=== PATIENT | male | born 1960 | race Caucasian/White ===

== ENCOUNTER 2025-03-08 13:02 | Outpatient (CLI) | payer OTHER, SELFPAY ==
--- NOTE | ~2025-03-08 | PE_ITS ---
EXAMINATION: PET skull to mid thigh DATE: 03/09/2025 08:55 INDICATION: Prostate cancer TECHNIQUE: 5.819 mCi of Illucix Ga-68([id number]) was administered i.v. Low dose computed tomography (CT) images were acquired from the base of the brain to the base of the brain to the proximal thighs for attenuation correction and anatomic localization. Positron emission tomography (PET) images were acquired in the same distribution beginning 71 minutes after injection. Images including fused PET/CT images were reconstructed in axial, coronal, and sagittal planes. Automated exposure control technique was employed. The dose-length product was 1366.87mGy-cm. COMPARISON: None FINDINGS: Head/neck: Typical pattern of symmetric physiologic increased activity in the lacrimal, parotid and submandibular glands as well as along the mucosa of the nasal and oral cavities, pharynx and hypopharynx. No pathologically enlarged cervical lymphadenopathy or suspicious foci of increased uptake in the visualized head or neck. Chest: Mild bibasilar atelectasis. No pulmonary nodules or pleural effusion. Heart size is normal. No pericardial effusion. Thoracic aorta is normal in caliber. No pathologically enlarged or PSMA avid thoracic lymphadenopathy. Abdomen/pelvis/proximal thighs: Physiologic renal accumulation and excretion of activity in the kidneys, bladder and along portions of ureters. There is a small focus of increased PSA may activity with maximal SUV of 13.6 at the right side of the normal sized prostate consistent with reported primary prostate cancer. Normal degree and slightly heterogenous pattern of increased uptake throughout the liver and spleen without radiologic correlate or dominant PSMA avid lesion. The gallbladder, pancreas and bilateral adrenal glands are normal. Moderate uptake scattered throughout the bowels with typical duodenal and proximal jejunal predominance and without radiologic correlate, also likely physiologic. Normal appendix. Mild descending and sigmoid colon diverticulosis without adjacent from trace stranding to suggest diverticulitis. Small left and very small right fat-containing inguinal hernias. No other abnormal foci of increased uptake or pathologically enlarged lymphadenopathy in the abdomen, pelvis or proximal thighs. Musculoskeletal: Moderate spondylosis in the cervical, thoracic and lumbar spine. No suspicious lytic, blastic or abnormally PSMA avid bone lesions. IMPRESSION: 1. Small focus of increased uptake at the right side of the normal sized prostate consistent with likely superimposed primary prostate cancer. No evident metastatic disease in the neck, chest, abdomen or pelvis. Reviewed, dictated and finalized at location A. CTOR OF FRONT OFFICE IMPRESSION: 1. Small focus of increased uptake at the right side of the normal sized prosta te consistent with likely superimposed primary prostate cancer. No evident meta static disease in the neck, chest, abdomen or pelvis.
--- OUTSIDE RECORDS SUMMARY | 2025-03-08 15:28 | XMS_ITS | Encounter Summary ---
Author Organization [facility] Address [facility] [place] [address] Care Team Providers Care Electronic Semiconductor Processor Name Role Phone Dylan Peter MD Unavailable [phone] Perico Valverde MD Primary Care Provider + Encounter Details Date Type Department Care Team (Late st Contact Info) Description 01/18/2025 Prep for Procedure [facility] [address] [place] [address] Bryant Wu MD [facility] [address] [place] [address] Social History Tobacco Use Types Packs/Day Years Used Date Smoking Tobacco: Never Smokeless Tobacco: Never Alcohol Use Standard Drinks/Week Comments No 0 (1 standard drink = 0.6 oz pur e alcohol) PHQ-2 Answer Date Recorded Patient Health Questionnaire-2 Score 0 05/09/2024 Sex and Gender Information Value Date Recorded Sex Assigned at Male 05/09/2024 9:07 AM CORN SHREDDER Legal Sex Male 5:52 PM CDT Gender Identity Not on file Sexual Orientation Not on file 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 Not on file Not on file Not on file documented as of this encounter Plan of Treatment Upcoming Encounters Date Type Department Care Team (Late st Contact Info) Description 06/19/2025 7:40 AM CDT Office Visit [facility] [address] [place] [address] Perico Valverde MD [id number] [phone] documented as of this encounter Results * URINE BACTERIA CULTURE (01/18/2025 11:44 AM CDT) SPEC DESCRIPTION URINE CLEAN CATCH 01/18/2025 11:44 AM CDT [facility] SPECIAL REQUESTS NO SPECIAL REQUEST 01/18/2025 11:44 AM CDT [facility] CULTURE RESULT NO GROWTH 2 DAYS 01/21/2025 7:17 AM CDT [facility] URINE SPECIMEN OBTAINED BY CLEAN CATCH PROCEDURE / Unknown 01/18/2025 11:44 AM CDT 01/18/2025 5:47 PM CDT Bryant Wu MD MICROBIOLOGY - GENERAL OR DERABLES Final Result Performing Organization Address City/State/[facility] Co de Phone Number [facility] [address] [place] [address], [place] [phone] [facility] [address] [place] [address], [place] [phone] * URINALYSIS (01/18/2025 11:44 AM CDT) COLOR (U) YELLOW 01/18/2025 12:34 PM CDT [facility] TRANSPARENCY CLEAR 01/18/2025 12:34 PM CDT [facility] SPECIFIC GRAVITY (U) 1.015 1.002 - 1.030 01/18/2025 12:34 PM CDT [facility] U PH 6.0 4.5 - 8.0 01/18/2025 12:34 PM CDT [facility] LEUKOCYTES (U) NEGATIVE NEGATIVE 01/18/2025 12:34 PM CDT [facility] NITRITES NEGATIVE NEGATIVE 01/18/2025 12:34 PM CDT [facility] PROTEIN RANDOM (U) NEGATIVE NEGATIVE 01/18/2025 12:34 PM T [facility] GLUCOSE (U) NEGATIVE NEGATIVE 01/18/2025 12:34 PM T [facility] KETONES MG/DL (U) NEGATIVE NEGATIVE 01/18/2025 12:34 PM T [facility] UROBILINOGEN NORMAL NORMAL EU/DL 01/18/2025 12:34 PM T [facility] BILIRUBIN (U) NEGATIVE NEGATIVE 01/18/2025 12:34 PM T [facility] BLOOD (U) NEGATIVE NEGATIVE 01/18/2025 12:34 PM T [facility] WBC/HPF MICROSCOPIC ANALYSIS NOT DONE ON URINES WITH NEGATIVE BIOCHEMICAL TESTS /HPF 01/18/2025 12:34 PM T [facility] URINE SPECIMEN OBTAINED BY CLEAN CATCH PROCEDURE / Unknown 01/18/2025 11:44 AM CDT Bryant Wu MD URINE ORDERABLES Final Re sult [facility] [address] [place] [address], [place] [phone] * PROTIME/INR, VENOUS (01/18/2025 11:44 AM CDT) PROTIME 12.2 9.4 - 12.5 SEC 01/18/2025 12:31 PM CDT [facility] INR 1.0 0.9 - 1.1 01/18/2025 12:31 PM T [facility] Comment: Recommended INR Therapeutic Goals: 2.0-3.0 Routine Therapy 2.5-3.5 Mechanical Prosthetic Valves (High Risk) 01/18/2025 11:4 4 AM CDT Bryant Wu MD LABORATORY Final Res ult Performing Organization Address City/[facility]/ZIP Co de Phone Number [facility] [address] [place] [address], [place] [phone] * PARTIAL THROMBOPLASTIN TIME,PTT (01/18/2025 11:44 AM CDT) PTT 32.6 25.1 - 36.5 SEC 01/18/2025 12:31 PM CDT [facility] 01/18/2025 11:4 4 AM CDT us Bryant Wu MD LABORATORY Final Res ult Performing Organization Address City/[facility]/ZIP Co de Phone Number [facility] [address] [place] [address], [place] [phone] * (ABNORMAL) BASIC METABOLIC PANEL (01/18/2025 11:44 AM CDT) GLUCOSE 121(H) 70 - 99 MG/DL 01/18/2025 12:39 PM CDT [facility] BUN 21(H) 7 - 18 MG/DL 01/18/2025 12:39 PM CDT [facility] CREATININE S/P/B 1.20 0.7 - 1.3 MG/DL 01/18/2025 12:39 PM CDT [facility] SODIUM S/P/B 142 136 - 145 MMOL/L 01/18/2025 12:39 PM CDT [facility] POTASSIUM S/P/B 3.8 3.5 - 5.1 MMOL/L 01/18/2025 12:39 PM CDT [facility] CHLORIDE S/P/B 105 100 - 108 MMOL/L 01/18/2025 12:39 PM CDT [facility] CO2 26.2 21 - 32 MMOL/L 01/18/2025 12:39 PM CDT [facility] CALCIUM S/P/B 9.2 8.5 - 10.1 MG/DL 01/18/2025 12:39 PM CDT [facility] ANION GAP 10.8 5 - 15 MMOL/L 01/18/2025 12:39 PM CDT [facility] BUN CREATININE RATIO 17.5 6 - 26 01/18/2025 12:39 PM CDT [facility] GFR ESTIMATE 68(L) >90 ML/MIN/1.7 3 M2 01/18/2025 12:39 PM CDT [facility] Comment: NOTE: eGFR is not calculated for patients <18 years of age. This is an estimated GFR calculation using the new CKD EPI creatinine equation without race and so does not require a correction factor for race. This estimated GFR should not be used for calculating drug doses. 01/18/2025 11:4 4 AM CDT us Bryant Wu MD LABORATORY Final Res ult [facility] [address] [place] [address], [place] [phone] * (ABNORMAL) CBC W/DIFF AUTOMATED (01/18/2025 11:44 AM CDT) WBC 6.88 4.50 - 11.00 x10'3/uL 01/18/2025 12:11 PM CDT [facility] RBC 4.80 4.70 - 6.10 x10'6/uL 01/18/2025 12:11 PM CDT [facility] HGB 14.9 14.0 - 18.0 G/DL 01/18/2025 12:11 PM CDT [facility] HCT 42.9(L) 43.0 - 54.0 % 01/18/2025 12:11 PM CDT [facility] MCV 89.4 80.0 - 94.0 FL 01/18/2025 12:11 PM CDT [facility] MCH 31.0 27.0 - 31.0 PG 01/18/2025 12:11 PM CDT [facility] MCHC 34.7 32.0 - 36.0 G/DL 01/18/2025 12:11 PM CDT [facility] RDW 12.1 11.5 - 14.5 % 01/18/2025 12:11 PM CDT [facility] PLT 210 130 - 400 x10'3/uL 01/18/2025 12:11 PM CDT [facility] MPV 10.3 9.3 - 12.2 FL 01/18/2025 12:11 PM CDT [facility] CBC COMMENT AUTOMATED RBC MORPHOLOGY AND PLATELET EVALUATION NORMAL 01/18/2025 12:11 PM CDT [facility] NEUTROPHILS % 59.4 % 01/18/2025 12:11 PM CDT [facility] LYMPHOCYTES % 27.8 % 01/18/2025 12:11 PM CDT [facility] MONOCYTES % 11.0 % 01/18/2025 12:11 PM CDT [facility] EOSINOPHILS 1.2 % 01/18/2025 12:11 PM CDT [facility] BASOPHILS 0.3 % 01/18/2025 12:11 PM CDT [facility] IMMATURE GRANS % 0.3 % 01/19/20 12:11 PM CDT [facility] NRBC % 0.0 % 01/18/2025 12:11 PM CDT [facility] ABS. NEUTROPHILS TOTAL 4.09 1.80 - 7.70 x10'3/uL 01/18/2025 12:11 PM CDT [facility] ABS. LYMPHOCYTES 1.91 1.00 - 4.80 x10'3/uL 01/18/2025 12:11 PM CDT [facility] ABS. MONOCYTES 0.76 0.30 - 0.82 x10'3/uL 01/18/2025 12:11 PM CDT [facility] ABS. EOSINOPHILS 0.08 0.04 - 0.54 x10'3/uL 01/18/2025 12:11 PM CDT [facility] ABS. BASOPHILS 0.02 0.01 - 0.08 x10'3/uL 01/18/2025 12:11 PM CDT [facility] ABS. IMMATURE GRANULOCYTES 0.02 0.00 - 0.49 x10'3/uL 01/18/2025 12:11 PM CDT [facility] ABS. NUCLEATED RBC'S 0.00 0.00 - 0.01 x10'3/uL 01/18/2025 12:11 PM CDT [facility] 01/18/2025 11:4 4 AM CDT Bryant Wu MD LABORATORY Final Res ult [facility] [address] [place] [address], documented in this encounter Visit Diagnoses Diagnosis Elevated PSA- Primary Elevated prostate specific antigen (PSA) documented in this encounter Care Teams Electronic Semiconductor Processor Relationship Specialty Start Date End Date Perico Valverde MD [address] [facility] [address] [place] [address] PCP - General FAMILY PRACTICE 09/20/17 Dylan Peter MD [facility] Clinical Staff Pharmacist INTERVENTIONAL CARDIOLOGY 10/08/17 documented as of this encounter
--- OUTSIDE RECORDS SUMMARY | 2025-03-08 15:29 | XMS_ITS | Encounter Summary ---
Author Organization [facility] Address [facility] [place] [address] Care Team Providers Care Paid Search Analyst Name Role Phone Dylan Peter MD Unavailable [phone] Perico Valverde MD Primary Care Provider + Encounter Details Date Type Department Care Team (Late st Contact Info) Description 09/25/2015 Abstract [facility] Conversion Perico Valverde MD [address] [facility] [address] [place] [address] Social History Tobacco Use Types Packs/Day Years Used Date Smoking Tobacco: Never Assessed Sex and Gender Information Value Date Recorded Sex Assigned at Male 05/09/2024 9:07 AM NEWSPAPER DELIVERER Legal Sex Male 5:52 PM CDT Gender Identity Not on file Sexual Orientation Not on file documented as of this encounter Miscellaneous Notes * Letter - Perico Valverde MD - 09/25/2015 12:00 AM CDT Sep 25, 2015 Jonh Oleary [address] [facility] [place] [address] Dear Jonh Oleary, Thank you for choosing [facility] for your health care needs. We appreciate the opportunity to help you maintain your well being. You recently had labs drawn. (cholesterol, metabolicpanel) Your results came back normal. Please remember to follow up as discussed at your last appointment .If you have any questions please feel free to call the office at [phone], Option #3 or Option #1 to make an appointment to discuss these results. Respectfully Yours, Electronically Signed by: Perico Valverde MD Cc: Patient?s Medical Record PAPER DELIVERER documented in this encounter Plan of Treatment Upcoming Encounters Date Type Department Care Team (Late st Contact Info) Description 06/19/2025 7:40 AM CDT Office Visit [facility] [address] [facility] [address] Perico Valverde MD [address] [facility] [address] [place] [address] documented as of this encounter Visit Diagnoses Not on filedocumented in this encounter Care Teams Paid Search Analyst Relationship Specialty Start Date End Date Perico Valverde MD [address] [facility] [address] [place] [address] PCP - General FAMILY PRACTICE 09/20/17 Dylan Peter MD [facility] Optical Assistant INTERVENTIONAL CARDIOLOGY 10/08/17 documented as of this encounter
--- OUTSIDE RECORDS SUMMARY | 2025-03-08 15:29 | XMS_ITS | Encounter Summary ---
Author Organization [facility] Address [facility] [place] [address] Care Team Providers Care Value Stream Manager Name Role Phone Dylan Peter MD Unavailable [phone] Perico Valverde MD Primary Care Provider + Encounter Details Date Type Department Care Team (Late st Contact Info) Description 07/05/2002 Abstract [facility] Conversion Md, Generic Conversion, Social History Tobacco Use Types Packs/Day Years Used Date Smoking Tobacco: Never Assessed Sex and Gender Information Value Date Recorded Sex Assigned at Male 05/09/2024 9:07 AM 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 VIDEO GAMES 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 Legal Sex Male 5:52 PM CDT Gender Identity Not on file Sexual Orientation Not on file documented as of this encounter Plan of Treatment Upcoming Encounters Date Type Department Care Team (Late st Contact Info) Description 06/19/2025 7:40 AM CDT Office Visit [facility] [address] [place] [address] Perico Valverde MD [address] [facility] [address] [place] [address] documented as of this encounter Visit Diagnoses Not on filedocumented in this encounter Care Teams Value Stream Manager Relationship Specialty Start Date End Date Perico Valverde MD [address] [facility] [address] [place] [address] PCP - General FAMILY PRACTICE 09/20/17 Dylan Peter MD Dav[facility] Adapted Physical Education Aide INTERVENTIONAL CARDIOLOGY 10/08/17 documented as of this encounter
--- OUTSIDE RECORDS SUMMARY | 2025-03-08 15:29 | XMS_ITS | Encounter Summary ---
Author Organization [facility] Address [facility] [place] [address] Care Team Providers Care Rn Stars Name Role Phone Dylan Peter MD Unavailable [phone] Perico Valverde MD Primary Care Provider + Encounter Details Date Type Department Care Team (Late Contact Info) Description 10/27/2017 Abstract [facility] CONVERSION [address] [place] [address] , Generic MD Mikhail Social History Tobacco Use Types Packs/Day Years Used Date Smoking Tobacco: Never Smokeless Tobacco: Never Alcohol Use Standard Drinks/Week Comments No 0 (1 standard drink = 0.6 oz pur e alcohol) Sex and Gender Information Value Date Recorded Sex Assigned at Male 05/09/2024 9:07 AM PRODUCT INTRODUCTION MANAGER Legal Sex Male 5:52 PM CDT Gender Identity Not on file Sexual Orientation Not on file documented as of this encounter Plan of Treatment Upcoming Encounters Date Type Department Care Team (Late Contact Info) Description 06/19/2025 7:40 AM CDT Office Visit [facility] [address] [place] [address] Perico Valverde MD [address] [place] [address] documented as of this encounter Visit Diagnoses Not on filedocumented in this encounter Care Teams Rn Stars Relationship Specialty Start Date End Date Perico Valverde MD [address] [place] [address] PCP - General FAMILY PRACTICE 09/20/17 Dylan Peter MD Davion Pipe Bender INTERVENTIONAL CARDIOLOGY 10/08/17 documented as of this encounter
--- OUTSIDE RECORDS SUMMARY | 2025-03-08 15:30 | XMS_ITS | Encounter Summary ---
Author Organization [facility] Address [facility] [place] [address] Care Team Providers Care Full Time Paramedic Name Role Phone Dylan Peter MD Unavailable [phone] Perico Valverde MD Primary Care Provider + Encounter Details Date Type Department Care Team (Latest Contact Info) Description 02/28/2025 Scan HEALTH INFO SR[facility]CS Scanned, Doc [facility] Social History Tobacco Use Types Packs/Day Years Used Date Smoking Tobacco: Never Smokeless Tobacco: Never Alcohol Use Standard Drinks/Week Comments No 0 (1 standard drink = 0.6 oz pur e alcohol) PHQ-2 Answer Date Recorded Patient Health Questionnaire-2 Score 0 05/09/2024 Sex and Gender Information Value Date Recorded Sex Assigned at Male 05/09/2024 9:07 AM LEAD SECURITY OFFICER Legal Sex Male 5:52 PM CDT Gender Identity Not on file Sexual Orientation Not on file 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 Not on file Not on file Not on file documented as of this encounter Plan of Treatment Upcoming Encounters Date Type Department Care Team (Late st Contact Info) Description 06/19/2025 7:40 AM CDT Office Visit [facility] [address] [place] [address] Perico Valverde MD [address] [place] [address] [place] [address] documented as of this encounter Visit Diagnoses Not on filedocumented in this encounter Care Teams Full Time Paramedic Relationship Specialty Start Date End Date Perico Valverde MD [address] [place] [address] PCP - General FAMILY PRACTICE 09/20/17 Dylan Peter MD Davion Law Office Manager INTERVENTIONAL CARDIOLOGY 10/08/17 documented as of this encounter
--- OUTSIDE RECORDS SUMMARY | 2025-03-08 15:30 | XMS_ITS | Encounter Summary ---
Author Organization [facility] Address [facility] [place] [address] Care Team Providers Care Clinical Manager Name Role Phone Dylan Peter MD Unavailable [phone] Perico Valverde MD Primary Care Provider + Encounter Details Date Type Department Care Team (Late st Contact Info) Description 11/18/2016 Abstract [facility] Conversion Perico Valverde MD [address] [address] Social History Tobacco Use Types Packs/Day Years Used Date Smoking Tobacco: Never Assessed Sex and Gender Information Value Date Recorded Sex Assigned at Male 05/09/2024 9:07 AM SANITATION INSPECTOR Legal Sex Male 5:52 PM CDT Gender Identity Not on file Sexual Orientation Not on file documented as of this encounter Miscellaneous Notes * Letter - Perico Valverde MD - 11/18/2016 12:00 AM CDT Nov 18, 2016 Jonh Oleary [address] [place] [address] Dear Jonh Oleary, Thank you for choosing [facility] for your health care needs. We appreciate the opportunity to help you maintain your well being. You recently had labs drawn. Your results came back normal. Please remember to follow up as discussed at your last appointment .If you have any questions please feel free to call the office at [phone], Option #3 or Option #1 to make an appointment to discuss these results. Respectfully Yours, Electronically Signed by: Perico Valverde MD Cc: Patients Medical Record TATION INSPECTOR documented in this encounter Plan of Treatment Upcoming Encounters Date Type Department Care Team (Late st Contact Info) Description 06/19/2025 7:40 AM CDT Office Visit [facility] [address] [facility] [place] [address] Perico Valverde MD [address] [facility] [address] [place] [address] documented as of this encounter Visit Diagnoses Not on filedocumented in this encounter Care Teams Clinical Manager Relationship Specialty Start Date End Date Perico Valverde MD [address] [facility] [address] [place] [address] PCP - General FAMILY PRACTICE 09/20/17 Dylan Peter MD Davion Tab Cutter INTERVENTIONAL CARDIOLOGY 10/08/17 documented as of this encounter
--- OUTSIDE RECORDS SUMMARY | 2025-03-08 15:30 | XMS_ITS | Clinical Summary ---
Author Organization [facility] Address [facility] [place] [address] Care Team Providers Care Customer Support Technician Name Role Phone Dylan Peter MD Unavailable [phone] Perico Valverde MD Primary Care Provider + Allergies No known active allergies Medications aspirin EC 81 MG tablet Take by mouth daily. 0 17 Active Cyanocobalami n (B-12 OR) Take 1 tablet by mouth every other day. Active lisinopril (PRINIVIL) 30 MG tabletIndicat ions:HTN (hypertension ) Take 1 tablet (30 mg total) by mouth daily. 90 tablet 1 12/22/19 25 Active triamterene-h ydroCHLOROthi azide (MAXZIDE-25) 37.5-25 MG tabletIndicat ions:HTN (hypertension ) Take 1 tablet by mouth daily. Take in place of Hydrochlorothiazide 25 mg. 90 tablet 1 12/22/19 25 Active Active Problems Problem Noted Date Diagnosed Date Elevated PSA 01/25/2025 Precordial pain 11/05/2020 Family history of heart dise ase in male family member before age 55 11/05/2020 Essential hypertension 10/27/2017 Stenosis of carotid artery, unspecified laterali ty 10/27/2017 Encounters Date Type Department Care Team Description 02/28/2025 Scan [facility] Scanned, Doc Med Group 02/27/2025 Scan [facility] Scanned, Doc Med Group 02/06/2025 Scan [facility] Scanned, Doc Med Group 01/25/2025 8:44 AM HELICOPTER TECHNICIAN - 01/25/2025 9:29 AM HELICOPTER TECHNICIAN Surgery [facility] [place] [address] Madeline Jimenes MD TRANSRECTAL ULTRASOUND FUSION-GUIDED PROSTATE BIOPSY 01/25/2025 8:29 AM HELICOPTER TECHNICIAN Anesthesia Event [facility] [place] [address] Daniel Romero DO Jarvis, Brittany L, WAX BALL MOLDER 01/25/2025 6:26 AM HELICOPTER TECHNICIAN - 01/25/2025 10:05 AM HELICOPTER TECHNICIAN Hospital Encounter [facility] [place] [address] Madeline Jimenes MD Discharge Disposition: Home or Self Care (Routine Discharge) 01/25/2025 Travel 01/23/2025 Scan HEALTH INFO SRVCS Scanned, Doc Med Group 01/19/2025 Travel 01/18/2025 11:39 AM CDT - 01/18/2025 11:59 PM CDT Hospital Encounter [facility] [address] [place] [address] Madeline Jimenes MD Discharge Disposition: Home or Self Care (Routine Discharge) 01/18/2025 Travel 01/18/2025 Prep for Procedure [facility] [address] [place] [address] Madeline Jimenes MD 12/20/2024 Telephone [facility] [address] [place] [address] Perico Valverde MD Medication Request 12/19/2024 7:40 AM CDT Office Visit [facility] [address] [place] [address] Perico Valverde MD Follow Up (Med review/) 12/19/2024 Travel from Last 3 Months Immunizations Immunization Administration Dates Next Due SANTIAGO (KEN & KEN) COVID-19 AD26 VACCINE 0.5 ML IM SUSP 06/29/2020 Tdap (Adacel) 12/19/2024 Family History Medical History Relation Comments cardiac arrest Brother 1 Heart Attack Father Heart Attack Maternal Grandfather Heart Attack Maternal Grandmother Heart Attack Paternal Grandfather Heart Attack Paternal Grandmother Relation Status Comments Brother 1 Alive Brother 2 Alive Father (Age 62) Maternal Grandfather (Age 87) Maternal Grandmother (Age 81) Mother Alive Paternal Grandfather (Age 81) Paternal Grandmother (Age 59) Sister 1 Alive Sister 2 Alive Social History Tobacco Use Types Packs/Day Years Used Date Smoking Tobacco: Never Smokeless Tobacco: Never Tobacco Cessation:Counseling Given: No Alcohol Use Standard Drinks/Week Comments No 0 (1 standard drink = 0.6 oz pur e alcohol) PHQ-2 Answer Date Recorded Patient Health Questionnaire-2 Score 0 05/09/2024 Sex and Gender Information Value Date Recorded Sex Assigned at Male 05/09/2024 9:07 AM HELICOPTER TECHNICIAN Legal Sex Male 5:52 PM CDT Gender Identity Not on file Sexual Orientation Not on file 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 Not on file Not on file Not on file Last Filed Vital Signs Vital Sign Reading Time Taken Comments Blood Pressure 105/74 01/25/2025 9:55 AM HELICOPTER TECHNICIAN Pulse 75 01/25/2025 9:55 AM HELICOPTER TECHNICIAN Temperature 36.7 C (98.1 F) 01/25/2025 9:55 AM HELICOPTER TECHNICIAN Respiratory Rate 16 01/25/2025 9:55 AM HELICOPTER TECHNICIAN Oxygen Saturation 100% 01/25/2025 9:55 AM HELICOPTER TECHNICIAN Inhaled Oxygen Concentration - - Weight 158 kg (348 lb 5.2 oz) 01/25/2025 7:30 AM HELICOPTER TECHNICIAN Height 195.6 cm (6' 5) 01/25/2025 7:30 AM HELICOPTER TECHNICIAN Body Mass Index 41.31 01/25/2025 7:30 AM HELICOPTER TECHNICIAN Plan of Treatment Upcoming Encounters Date Type Department Care Team (Late st Contact Info) Description 06/19/2025 7:40 AM CDT Office Visit MED GROUP [address] [place] [address] Perico Valverde MD [address] [place] [address] Health Maintenance Due Date Last Done Comments Colorectal Cancer Screening Colonoscopy (10 Years) 1960 Annual Physical 1965 Hepatitis C 02/05/1980 Pneumococcal Vaccine: 50+ Ye ars (1 of 1 - PCV) 02/05/2012 Zoster Vaccines (1 of 2) 02/05/2012 RSV Immunization or 60+ Years (1 - Risk 60-74 years 1-dose series) 2022 COVID-19 Vaccine (2 - 2024-2 6 season) 2024 06/29/2020 Influenza Adult (#1) 2024 DTaP, Tdap and Td Vaccines ( 2 - Td or Tdap) 12/19/2034 12/19/2024 PHQ-2 (Physician [place]) Completed 05/09/2024 Hepatitis A Vaccines Aged Out No long er eligible based on patient's age to complete this topic Meningococcal B Vaccine Aged Out No l onger eligible based on patient's age to complete this topic Meningococcal Vaccine Aged Out No albin car eligible based on patient's age to complete this topic RSV Immunizations Under 20 Months Aged Out No longer eligible based on patient's age to complete this topic Procedures Procedure Name Priority Date/Time Associated Diagnosis Comments BIOPSY OF PROSTATE,NEEDLE/PUNC H 01/25/2025 8:29 AM HELICOPTER TECHNICIAN ELEVATED PROSTATE SPECIFIC ANTIGEN R97.20 Case Notes SCHED BY FAX 12/29/2024 LCS PHONE ASSESS Special Needs [facility] CONFIRMATION # [id number] PATHOLOGY Routine 01/25/2025 12:00 AM HELICOPTER TECHNICIAN URINE BACTERIA CULTURE Routine 01/18/2025 11:44 AM CDT Elevated PSA URINALYSIS Routine 01/18/2025 11:44 AM CDT Elevated PSA PROTHROMBIN TIME Routine 01/18/2025 11:44 AM CDT Elevated PSA PARTIAL THROMBOPLASTIN TIME,PTT Routine 01/18/2025 11:44 AM CDT Elevated PSA BASIC METABOLIC PANEL Routine 01/18/2025 11:44 AM CDT Elevated PSA CBC W/DIFF AUTOMATED Routine 01/18/2025 11:44 AM CDT Elevated PSA from Last 3 Months Results * Pathology (01/25/2025 12:00 AM HELICOPTER TECHNICIAN) PATHOLOGY [facility] Department of Laboratory Medicine [address] [place] [id number] , extension [phone] Pathology Report Surgical Pathology Report Name: RICK OLEARY Specimen #: [id number] Age: 11 1960 (Age: 64) Location: [facility] Sex: M Procedure Date: 01/25/2025 Hospital #: [id number] Date Received: 01/25/2025 Date Reported: 01/29/2025 Provider: MADELINE JIMENES MD Source: A: Prostate, left lateral base, needle biopsy B: Prostate, left base, needle biopsy C: Prostate, left lateral mid, needle biopsy D: Prostate, left medial mid, needle biopsy E: Prostate, left lateral apex, needle biopsy F: Prostate, left medial apex, needle biopsy G: Prostate, right lateral base, needle biopsy H: Prostate, right base, needle biopsy I: Prostate, right lateral mid, needle biopsy J: Prostate, right medial mid, needle biopsy K: Prostate, right lateral apex, needle biopsy L: Prostate, JOSE #2, needle biopsy M: Prostate, JOSE #1, needle biopsy N: Prostate, right medial apex, needle biopsy Clinical History: Elevated prostate-specific antigen. FINAL DIAGNOSIS: A. Prostate, left base lateral, needle biopsy: - Benign prostate tissue. B. Prostate, left base, needle biopsy: - Benign prostate tissue. - Colonic mucosa with low-grade dysplasia, suggestive of an incidentally sampled tubular adenoma. C. Prostate, left mid lateral, needle biopsy: - Prostatic acinar adenocarcinoma, Anitha Score 3 + 4 = 7 (Grade Group 2; 10 to 20% pattern 4), involving 1 of 1 core and 35% of the tissue. D. Prostate, left mid medial, needle biopsy: - Benign prostate tissue. E. Prostate, left apex lateral, needle biopsy: - Prostatic acinar adenocarcinoma, North Pole Score 3 + 4 = 7 (Grade Group 2; 10 to 20% pattern 4), involving 1 of 1 core and 30% of the tissue. F. Prostate, left apex medial, needle biopsy: - Benign prostate tissue. G. Prostate, right base lateral, needle biopsy: - Benign prostate tissue. H. Prostate, right base, needle biopsy: - Benign prostate tissue. I. Prostate, right mid lateral, needle biopsy: - Prostatic acinar adenocarcinoma, North Pole Score 3 + 3 = 6 (Grade Group 1), involving 1 of 2 cores and 5 to 10% of the tissue. - Perineural invasion is present. J. Prostate, right mid medial, needle biopsy: - Benign prostate tissue. K. Prostate, right apex lateral, needle biopsy: - Prostatic acinar adenocarcinoma, North Pole Score 3 + 3 = 6 (Grade Group 1), discontinuously involving 1 of 2 cores, spanning 25 to 30% of the total core length and involving 10% of the total tissue. L. Prostate, region of interest #2, needle biopsy: - Prostatic acinar adenocarcinoma, North Pole Score 3 + 3 = 6 (Grade Group 1), involving multiple core fragments and 20 to 25% of the tissue. - Invasive carcinoma involves skeletal muscle. M. Prostate, region of interest #1, needle biopsy: - Prostatic acinar adenocarcinoma, North Pole Score 4 + 3 = 7 (Grade Group 3; 80 to 90% pattern 4), involving 3 of 3 cores and 40% of the tissue. N. Prostate, right apex medial, needle biopsy: - Benign prostate tissue. Diagnosis Comment: A triple immunostain for AMACR/p63/HMWK is performed on blocks C1, E1, G1, I1, K1, L1, and M1 to assess for invasive carcinoma. Invasive carcinoma is identified in all of the listed blocks besides G1, characterized by strong reactivity for AMACR and an absence of basal cell markers p63/HMWK. Gross Description: A. Received in formalin, labeled with a patient label and as left base lateral, are 2 friable william soft tissue cores, each 0.1 cm in diameter, that measure 0.4 and 0.9 cm in length. The specimen is entirely submitted in cassette A1. B. Received in formalin, labeled with a patient label and as left base, is a 1.3 x 0.1 cm william soft tissue core. The specimen is entirely submitted in cassette B1. C. Received in formalin, labeled with a patient label and as left mid lateral, is a 1.7 x 0.1 cm william soft tissue core. The specimen is entirely submitted in cassette C1. D. Received in formalin, labeled with a patient label and as left mid medial, are 2 william soft tissue cores, each 0.1 cm in diameter, that measure 0.5 and 1.0 cm in length. The specimen is entirely submitted in cassette D1. E. Received in formalin, labeled with a patient label and as left apex lateral, is a 1.7 x 0.1 cm william soft tissue core. The specimen is entirely submitted in cassette E1. F. Received in formalin, labeled with a patient label and as left apex medial, is a 0.9 x 0.1 cm william soft tissue core. The specimen is entirely submitted in cassette F1. G. Received in formalin, labeled with a patient label and as right base lateral, is a 1.4 x 0.1 cm william soft tissue core. The specimen is entirely submitted in cassette G1. H. Received in formalin, labeled with a patient label and as right base, is a 1.5 x 0.1 cm william soft tissue core. The specimen is entirely submitted in cassette H1. I. Received in formalin, labeled with a patient label and as right mid lateral, are 2 william soft tissue cores, each 0.1 cm in diameter, that measures 0.7 and 0.8 cm in length. The specimen is entirely submitted in cassette I1. J. Received in formalin, labeled with a patient label and as right mid medial, is a 1.2 x 0.1 cm william soft tissue core. The specimen is entirely submitted in cassette J1. K. Received in formalin, labeled with a patient label and as right apex lateral, are 2 william soft tissue cores, each 0.1 cm in diameter, that measure 0.5 and 0.6 cm in length. The specimen is entirely submitted in cassette K1. L. Received in formalin, labeled with a patient label and as JOSE #2, are 4 friable william soft tissue cores, each 0.1 cm in diameter, that range from 0.4-1.4 cm in length. The specimen is entirely submitted in cassette L1. M. Received in formalin, labeled with a patient label and as JOSE #1, are 3 friable william soft tissue cores, each 0.1 cm in diameter, that range from 1.0-1.4 cm in length. The specimen is entirely submitted in cassette M1. N. Received in formalin, labeled with a patient label and as right apex medial, is a 1.3 x 0.1 cm william soft tissue core. The specimen is entirely submitted in cassette N1. All immunohistochemical and histochemical tests were developed by and performed at [facility], [address] [place] [address]. All tests reported here have not been cleared or approved by the U.S. Food and Drug Administration (FDA). This laboratory is regulated under CLIA as qualified to perform high-complexity testing. These tests are used for clinical purposes. They should not be regarded as investigational or for research. Positive and negative controls show appropriate reactivity. Gross examination (when applicable) was performed at [facility], [address] [place] [address]. This case was interpreted and signed out at [facility], [address] [place] [address]. Electronically Signed Out Rimma Perez M.D. [facility] TISSUE PROSTATE / Unknown 8:18 AM HELICOPTER TECHNICIAN Tissue specimen (specimen) PROSTATE / Unknown 01/25/2025 8:18 AM HELICOPTER TECHNICIAN Tissue specimen (specimen) PROSTATE / Unknown 01/25/2025 8:18 AM HELICOPTER TECHNICIAN Tissue specimen (specimen) PROSTATE / Unknown 01/25/2025 8:18 AM HELICOPTER TECHNICIAN Tissue specimen (specimen) PROSTATE / Unknown 01/25/2025 8:18 AM HELICOPTER TECHNICIAN Tissue specimen (specimen) PROSTATE / Unknown 01/25/2025 8:18 AM HELICOPTER TECHNICIAN Tissue specimen (specimen) PROSTATE / Unknown 01/25/2025 8:18 AM HELICOPTER TECHNICIAN Tissue specimen (specimen) PROSTATE / Unknown 01/25/2025 8:18 AM HELICOPTER TECHNICIAN Tissue specimen (specimen) PROSTATE / Unknown 01/25/2025 8:18 AM HELICOPTER TECHNICIAN Tissue specimen (specimen) PROSTATE / Unknown 01/25/2025 8:18 AM HELICOPTER TECHNICIAN Tissue specimen (specimen) PROSTATE / Unknown 01/25/2025 8:18 AM HELICOPTER TECHNICIAN Tissue specimen (specimen) PROSTATE / Unknown 01/25/2025 8:18 AM HELICOPTER TECHNICIAN Tissue specimen (specimen) PROSTATE / Unknown 01/25/2025 8:18 AM HELICOPTER TECHNICIAN Tissue specimen (specimen) PROSTATE / Unknown 01/25/2025 8:18 AM HELICOPTER TECHNICIAN us Madeline Jimenes MD PATHOLOGY/CYTOLOGY ORDERA BLES Final Result [facility] [address] [place] [address], [place] [phone] [id number] * URINALYSIS (01/18/2025 11:44 AM CDT) COLOR (U) YELLOW 01/18/2025 12:34 PM CDT [facility] TRANSPARENCY CLEAR 01/18/2025 12:34 PM CDT [facility] SPECIFIC GRAVITY (U) 1.015 1.002 - 1.030 01/18/2025 12:34 PM CDT [facility] U PH 6.0 4.5 - 8.0 01/18/2025 12:34 PM T [facility] LEUKOCYTES (U) NEGATIVE NEGATIVE 01/18/2025 12:34 PM CDT [facility] NITRITES NEGATIVE NEGATIVE 01/18/2025 12:34 PM T [facility] PROTEIN RANDOM (U) NEGATIVE NEGATIVE 01/18/2025 12:34 PM T [facility] GLUCOSE (U) NEGATIVE NEGATIVE 01/18/2025 12:34 PM T [facility] KETONES MG/DL (U) NEGATIVE NEGATIVE 01/18/2025 12:34 PM T [facility] UROBILINOGEN NORMAL NORMAL EU/DL 01/18/2025 12:34 PM T [facility] BILIRUBIN (U) NEGATIVE NEGATIVE 01/18/2025 12:34 PM T [facility] BLOOD (U) NEGATIVE NEGATIVE 01/18/2025 12:34 PM CDT [facility] WBC/HPF MICROSCOPIC ANALYSIS NOT DONE ON URINES WITH NEGATIVE BIOCHEMICAL TESTS /HPF 01/18/2025 12:34 PM CDT [facility] URINE SPECIMEN OBTAINED BY CLEAN CATCH PROCEDURE / Unknown 01/18/2025 11:44 AM CDT Madeline Jimenes MD URINE ORDERABLES Final Re sult Performing Organization Address [facility]/ZIP Co de Phone Number [facility] [address] [place] [address], [place] [phone] * URINE BACTERIA CULTURE (01/18/2025 11:44 AM CDT) SPEC DESCRIPTION URINE CLEAN CATCH 01/18/2025 11:44 AM CDT [facility] SPECIAL REQUESTS NO SPECIAL REQUEST 01/18/2025 11:44 AM CDT [facility] CULTURE RESULT NO GROWTH 2 DAYS 01/21/2025 7:17 AM CDT [facility] URINE SPECIMEN OBTAINED BY CLEAN CATCH PROCEDURE / Unknown 01/18/2025 11:44 AM CDT 01/18/2025 5:47 PM CDT us Madeline Jimenes MD MICROBIOLOGY - GENERAL OR DERABLES Final Result Performing Organization Address [facility] Co de Phone Number [facility] [address] [place] [address], [place] [phone] [facility] [address] [place] [address], [place] [phone] * PARTIAL THROMBOPLASTIN TIME,PTT (01/18/2025 11:44 AM CDT) PTT 32.6 25.1 - 36.5 SEC 01/18/2025 12:31 PM CDT [facility] 01/18/2025 11:4 4 AM CDT us Madeline Jimenes MD LABORATORY Final Res ult [facility] [address] [place] [address], [place] [phone] * PROTIME/INR, VENOUS (01/18/2025 11:44 AM CDT) PROTIME 12.2 9.4 - 12.5 SEC 01/18/2025 12:31 PM CDT [facility] INR 1.0 0.9 - 1.1 01/18/2025 12:31 PM CDT [facility] Comment: Recommended INR Therapeutic Goals: 2.0-3.0 Routine Therapy 2.5-3.5 Mechanical Prosthetic Valves (High Risk) 01/18/2025 11:4 4 AM CDT us Madeline Jimenes MD LABORATORY Final Res ult Performing Organization Address [facility]/ZIP Co de Phone Number [facility] [address] [place] [address], [place] [phone] * (ABNORMAL) BASIC METABOLIC PANEL (01/18/2025 11:44 AM CDT) GLUCOSE 121(H) 70 - 99 MG/DL 01/18/2025 12:39 PM CDT [facility] BUN 21(H) 7 - 18 MG/DL 01/18/2025 12:39 PM CDT [facility] CREATININE S/P/B 1.20 0.7 - 1.3 MG/DL 01/18/2025 12:39 PM CDT [facility] SODIUM S/P/B 142 136 - 145 MMOL/L 01/18/2025 12:39 PM CDT [facility] POTASSIUM S/P/B 3.8 3.5 - 5.1 MMOL/L 01/18/2025 12:39 PM CDT [facility] CHLORIDE S/P/B 105 100 - 108 MMOL/L 01/18/2025 12:39 PM CDT [facility] CO2 26.2 21 - 32 MMOL/L 01/18/2025 12:39 PM CDT [facility] CALCIUM S/P/B 9.2 8.5 - 10.1 MG/DL 01/18/2025 12:39 PM CDT [facility] ANION GAP 10.8 5 - 15 MMOL/L 01/18/2025 12:39 PM CDT [facility] BUN CREATININE RATIO 17.5 6 - 26 01/18/2025 12:39 PM CDT [facility] GFR ESTIMATE 68(L) >90 ML/MIN/1.7 3 M2 01/18/2025 12:39 PM CDT [facility] Comment: NOTE: eGFR is not calculated for patients <18 years of age. This is an estimated GFR calculation using the new CKD EPI creatinine equation without race and so does not require a correction factor for race. This estimated GFR should not be used for calculating drug doses. 01/18/2025 11:4 4 AM CDT Madeline Jimenes MD LABORATORY Final Res ult [facility] [address] [place] [address], [place] [phone] * (ABNORMAL) CBC W/DIFF AUTOMATED (01/18/2025 11:44 AM CDT) WBC 6.88 4.50 - 11.00 x10'3/uL 01/18/2025 12:11 PM CDT [facility] RBC 4.80 4.70 - 6.10 x10'6/uL 01/18/2025 12:11 PM CDT [facility] HGB 14.9 14.0 - 18.0 G/DL 01/18/2025 12:11 PM CDT [facility] HCT 42.9(L) 43.0 - 54.0 % 01/18/2025 12:11 PM CDT [facility] MCV 89.4 80.0 - 94.0 FL 01/18/2025 12:11 PM CDT [facility] MCH 31.0 27.0 - 31.0 PG 01/18/2025 12:11 PM CDT [facility] MCHC 34.7 32.0 - 36.0 G/DL 01/18/2025 12:11 PM CDT [facility] RDW 12.1 11.5 - 14.5 % 01/18/2025 12:11 PM CDT [facility] PLT 210 130 - 400 x10'3/uL 01/18/2025 12:11 PM CDT [facility] MPV 10.3 9.3 - 12.2 FL 01/18/2025 12:11 PM CDT [facility] CBC COMMENT AUTOMATED RBC MORPHOLOGY AND PLATELET EVALUATION NORMAL 01/18/2025 12:11 PM CDT [facility] NEUTROPHILS % 59.4 % 01/18/2025 12:11 PM CDT [facility] LYMPHOCYTES % 27.8 % 01/18/2025 12:11 PM CDT [facility] MONOCYTES % 11.0 % 01/18/2025 12:11 PM CDT [facility] EOSINOPHILS 1.2 % 01/18/2025 12:11 PM CDT [facility] BASOPHILS 0.3 % 01/18/2025 12:11 PM CDT [facility] IMMATURE GRANS % 0.3 % 01/19/20 12:11 PM CDT [facility] NRBC % 0.0 % 01/18/2025 12:11 PM CDT [facility] ABS. NEUTROPHILS TOTAL 4.09 1.80 - 7.70 x10'3/uL 01/18/2025 12:11 PM CDT [facility] ABS. LYMPHOCYTES 1.91 1.00 - 4.80 x10'3/uL 01/18/2025 12:11 PM CDT [facility] ABS. MONOCYTES 0.76 0.30 - 0.82 x10'3/uL 01/18/2025 12:11 PM CDT [facility] ABS. EOSINOPHILS 0.08 0.04 - 0.54 x10'3/uL 01/18/2025 12:11 PM CDT [facility] ABS. BASOPHILS 0.02 0.01 - 0.08 x10'3/uL 01/18/2025 12:11 PM CDT [facility] ABS. IMMATURE GRANULOCYTES 0.02 0.00 - 0.49 x10'3/uL 01/18/2025 12:11 PM CDT [facility] ABS. NUCLEATED RBC'S 0.00 0.00 - 0.01 x10'3/uL 01/18/2025 12:11 PM T [facility] 01/18/2025 11:4 4 AM CDT Madeline Jimenes MD LABORATORY Final Res ult [facility] [address] [place] [address], [place] [phone] from Last 3 Months Insurance [employer] Care Teams Customer Support Technician Relationship Specialty Start Date End Date Perico Valverde MD [address] [phone] PCP - General FAMILY PRACTICE 09/20/17 Dylan Peter MD [place] Portable Irrigation Operator INTERVENTIONAL CARDIOLOGY 10/08/17
--- OUTSIDE RECORDS SUMMARY | 2025-03-08 15:30 | XMS_ITS | Encounter Summary ---
Author Organization [facility] Address Formerly [facility] [place] [address] Care Team Providers Care Exec. Creative Director Name Role Phone Dylan Peter MD Unavailable [phone] Perico Valverde MD Primary Care Provider + Encounter Details Date Type Department Care Team (Latest Contact Info) Description 02/27/2025 Scan HEALTH INFO SRVCS Scanned, Doc Med Group Social History Tobacco Use Types Packs/Day Years Used Date Smoking Tobacco: Never Smokeless Tobacco: Never Alcohol Use Standard Drinks/Week Comments No 0 (1 standard drink = 0.6 oz pur e alcohol) PHQ-2 Answer Date Recorded Patient Health Questionnaire-2 Score 0 05/09/2024 Sex and Gender Information Value Date Recorded Sex Assigned at Male 05/09/2024 9:07 AM 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 Legal Sex Male 5:52 PM CDT Gender Identity Not on file Sexual Orientation Not on file 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 Creative Director Relationship Specialty Start Date End Date Perico Valverde MD [address] [place] [phone] PCP - General FAMILY PRACTICE 09/20/17 Dylan Peter MD [place] Scallop Shucker INTERVENTIONAL CARDIOLOGY 10/08/17 documented as of this encounter
--- OUTSIDE RECORDS SUMMARY | 2025-03-08 15:30 | XMS_ITS | Encounter Summary ---
Author Organization [facility] / [facility] Address [facility] [place] [address] Care Team Providers Care Math Tutor Name Role Phone Dylan Peter MD Unavailable [phone] Perico Valverde MD Primary Care Provider + Encounter Details Date Type Department Care Team (Late st Contact Info) Description 11/20/2017 Abstract [facility] at [facility], [facility] [address] [place] [address] Kaden Franklin MA Social History Tobacco Use Types Packs/Day Years Used Date Smoking Tobacco: Never Smokeless Tobacco: Never Alcohol Use Standard Drinks/Week Comments No 0 (1 standard drink = 0.6 oz pur e alcohol) Sex and Gender Information Value Date Recorded Sex Assigned at Male 05/09/2024 9:07 AM 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 ADVISOR Legal Sex Male 5:52 PM CDT Gender Identity Not on file Sexual Orientation Not on file documented as of this encounter Plan of Treatment Upcoming Encounters Date Type Department Care Team (Late Contact Info) Description 06/19/2025 7:40 AM CDT Office Visit [facility] [address] [place] [address] Perico Valverde MD [address] [place] [address] documented as of this encounter Procedures Procedure Name Priority Date/Time Associated Diagnosis Comments LIPID PANEL Routine 07/10/2017 COMPREHENSIVE METABOLIC PANEL Routine 11/17/2016 documented in this encounter Results * LIPID PANEL (07/10/2017) CHOLESTEROL 144 HDL 58 TRIGLYCERIDES 107 NON HDL CHOLESTEROL 85 LDL (CALCULATED) 64 07/10/2017 [facility] Final Result * COMPREHENSIVE METABOLIC PANEL (11/17/2016) SODIUM S/P/B 139 POTASSIUM S/P/B 3.7 CO2 27 CHLORIDE S/P/B 102 GLUCOSE 100 mg/dL CALCIUM S/P/B 9.5 BUN 19 CREATININE S/P/B 0.94 0.7 - 1.3 EGFR AFR. AMER. >60 EGFR NON-AFR. AMER. >60 <=90 ALKALINE PHOSPHATASE S/P/B 47 ALT 28 AST 25 BILIRUBIN TOTAL S/P/B 1.1 ALBUMIN S/P/B 4.1 3.5 - 5.0 TOTAL PROTEIN S/P/B 6.8 11/17/2016 [facility] Final Result documented in this encounter Visit Diagnoses Not on filedocumented in this encounter Care Teams Math Tutor Relationship Specialty Start Date End Date Perico Valverde MD [address] [facility] [address] [place] [address] PCP - General FAMILY PRACTICE 09/20/17 Dylan Peter MD [employer] Receptionist INTERVENTIONAL CARDIOLOGY 10/08/17 documented as of this encounter
== END 2025-03-08 13:03 | disposition home or self-care (01) ==
PROVIDERS: Visit Provider Urology
DX: C61 Malignant neoplasm of prostate (principal)
CPT/HCPCS: 78815; A9552; A9596